=== PATIENT | female | born 1940 | race Caucasian/White ===

== ENCOUNTER 2017-09-30 08:02 | Outpatient (CLI) | payer OTHER | END 2017-09-30 08:03 | disposition home or self-care (01) | LOC: SONOGRAMA 08:02 | DX: E03.8 Other specified hypothyroidism (principal); E07.89 Other specified disorders of thyroid ==

== ENCOUNTER → 2023-07-05 | Emergency (ER) | payer OTHER ==
[~2023-07-05] VITALS: Ht 152.4 cm; Wt 59.9 kg
[~2023-07-05] MED LIST: AMLODIPINE-OLM1 EAC2 PO; ATACAND HCT 321 EAC1 PO; ATORVASTATIN CA80 MG PO; DOXAZOSIN MESYLA4 MG PO; GLIPIZIDE XL5 MG PO; HORIZANT300 MG PO; KAPSPARGO SPRIN25 MG PO; LEVO-T25 MCG PO; ZETIA10 MG PO
[2023-07-05 17:12] LABS: HEMOGLOBIN 13.5 g/dL (12.0-15.00); MEAN CELL VOLUME 88.3 fL (80.00-100.00); MEAN CORPUSCULAR HEMOGLOBIN 30.4 pg (27.00-32.0); MEAN CORPUSCULAR HGB CONC 34.5 g/dl (32.0-36.0); PLATELET COUNT 275 K/uL (150-450); RED BLOOD COUNT 4.42 M/uL (4.00-6.00); RED CELL DISTRIBUTION WIDTH 12.8 % (11.5-14.5)
[2023-07-05 18:24] LABS: CALCIUM 9.2 mg/dL (8.5-10.1); CREATININE SERUM 0.74 mg/dL (0.55-1.02); GFR 75.32; POTASSIUM 3.89 mEq/L (3.5-5.1)
== END | disposition left against medical advice (07) ==
LOC: ER 13:20
PROVIDERS: General Practice
DX: R42 Dizziness and giddiness (principal); E11.9 Type 2 diabetes mellitus without complications; Z79.84 Long term (current) use of oral hypoglycemic drugs; I10 Essential (primary) hypertension